=== PATIENT | male | born 2005 | race Caucasian/White ===

== ENCOUNTER 2025-03-12 20:05 | Emergency (ER) | payer BC ==
[2025-03-12 20:33] LABS: APPEARANCE,URINE CLEAR; GLUCOSE,URINE NEGATIVE (NEGATIVE); OCCULT BLOOD,URINE NEGATIVE (NEGATIVE)
[2025-03-12 20:43] LABS: AMPHETAMINES SCREEN, URINE NEGATIVE (CUTOFF=500); BUPRENORPHINE SCREEN,URINE NEGATIVE (CUTOFF=10); METHADONE SCREEN, URINE NEGATIVE (CUTOFF=200); METHAMPHETAMINES SCREEN, URINE NEGATIVE (CUTOFF=500); OXYCODONE SCREEN,URINE NEGATIVE (CUT0FF=100); PCP SCREEN,URINE NEGATIVE (CUTOFF=25); THC SCREEN,URINE 20 NG/ML NEGATIVE (CUTOFF=50)
== END 2025-03-12 21:29 | disposition home or self-care (01) ==
LOC: MW.ED 20:05
DX: F32.A Depression, unspecified (principal); R45.851 Suicidal ideations; F43.9 Reaction to severe stress, unspecified
CPT/HCPCS: 80305; 81003; 99283; 99284